=== PATIENT | male | born 1990 | race Caucasian/White ===

== ENCOUNTER 2022-08-08 14:12 | Inpatient (IN) | payer MEDICAID, OTHER ==
[2022-08-08] MEDS ORDERED: SODIUM CHLORIDE 0.9% 1,000 ML IV ONE ×2 (14:33→18:12)
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
[2022-08-08] MEDS ORDERED: LORazepam 2 MG/ML INJ IV STA ×2 (15:11→18:07)
[2022-08-08 15:20] LABS: Basophils # (A) 0.1 k/uL (0-0.2); Basophils % (A) 1 %; Eosinophils # (A) 0.2 k/uL (0-0.7); Eosinophils % (A) 2 %; HCT 47.4 % (39.0-53.0); HGB 16.4 gm/dL (13.0-17.5); Lymphocytes % (A) 23 %; MCH 32.5 pg (25.0-35.0); MCHC 34.5 g/dL (31.0-37.0); MCV 94.3 fL (80.0-100.0); Mean Platelet Volume 7.2; Monocytes # (A) 0.8 k/uL (0-1.0); Monocytes % (A) 7 %; Neutrophils # (A) 8.4 k/uL (1.3-7.7); Neutrophils % (A) 65 %; Platelet Count 350 k/uL (150-450); RBC 5.03 m/uL (4.30-5.90); RDW 12.4 % (11.5-15.5); WBC 12.9 k/uL (3.8-10.6)
[2022-08-08 15:30] LABS: ALT 104 U/L (4-49); AST 75 U/L (17-59); African American GFR (CKD) >90 (>60 ml/min/1.73 sqM); Albumin 5.1 g/dL (3.5-5.0); Alcohol 59 mg/dL; Alkaline Phosphatase 89 U/L (38-126); Anion Gap 14 mmol/L; Blood Urea Nitrogen 11 mg/dL (9-20); Calcium 9.2 mg/dL (8.4-10.2); Carbon Dioxide 21 mmol/L (22-30); Chloride 101 mmol/L (98-107); Glucose 107 mg/dL (74-99); Non-African American GFR(CKD) >90 (>60 ml/min/1.73 sqM); Potassium 4.2 mmol/L (3.5-5.1); Sodium 136 mmol/L (137-145); Total Bilirubin 0.5 mg/dL (0.2-1.3); Total Protein 9.1 g/dL (6.3-8.2)
[2022-08-08 15:38] LABS: Amphetamine Screen,Urine Detected (NotDetected); Barbiturate Screen,Urine Not Detected (NotDetected); Benzodiazepines Screen,Urine Detected (NotDetected); Cocaine Screen,Urine Detected (NotDetected); Methadone Screen, Urine Not Detected (NotDetected); Opiate Screen,Urine Not Detected (NotDetected); Oxycodone Screen, Urine Detected (NotDetected); Phencyclidine Screen,Urine Not Detected (NotDetected); Tricyclic Antidepressant,Urine Not Detected (NotDetected); Urn Cannabinoid Scrn Detected (NotDetected)
--- NOTE | 2022-08-08 21:22 | XR ---
EXAMINATION TYPE: XR chest 2V DATE OF EXAM: 08/08/2022 COMPARISON: NONE HISTORY: Chest pain TECHNIQUE: 2 views FINDINGS: Heart and mediastinum are normal. Lungs are clear. Diaphragm is normal. Bony thorax appears normal. IMPRESSION: Normal chest.
[2022-08-08] MEDS ORDERED: MAG HYDROX/AL HYDROX/SIMETH 30 ML CUP PO PRN (22:44)
[2022-08-08] MEDS ORDERED: HALOPERIDOL LACTATE 5 MG/ML 1 ML VIAL IM PRN (22:44)
[2022-08-08] MEDS ORDERED: ACETAMINOPHEN TAB 325 MG TAB PO PRN (22:44)
[2022-08-08] MEDS ORDERED: MAGNESIUM HYDROXIDE 2,400 MG/10 ML CUP PO PRN (22:44)
[2022-08-08] MEDS ORDERED: LORazepam 1 MG TAB PO PRN (22:44)
[2022-08-08] MEDS ORDERED: LORazepam 2 MG/ML INJ IM PRN (22:49)
[2022-08-08] MEDS ORDERED: haloperidoL 5 MG TAB PO PRN (22:49)
[2022-08-08] MEDS: LORazepam 1 MG TAB PO PRN (23:15)
--- NOTE | 2022-08-09 02:15 | P.PN ---
Progress Note - Text Progress Note Date: 08/08/22 patient could not be evaluated , heavily medicated and sleeping at this time
[2022-08-09 05:15] VITALS: RESP 16
[2022-08-09 07:14] LABS: Basophils # (A) 0.1 k/uL (0-0.2); Basophils % (A) 1 %; Eosinophils # (A) 0.3 k/uL (0-0.7); Eosinophils % (A) 3 %; HCT 46.5 % (39.0-53.0); HGB 15.9 gm/dL (13.0-17.5); Lymphocytes # (A) 2.5 k/uL (1.0-4.8); Lymphocytes % (A) 25 %; MCH 32.3 pg (25.0-35.0); MCHC 34.1 g/dL (31.0-37.0); MCV 94.7 fL (80.0-100.0); Mean Platelet Volume 7.4; Monocytes # (A) 0.9 k/uL (0-1.0); Monocytes % (A) 9 %; Neutrophils % (A) 60 %; Platelet Count 323 k/uL (150-450); RBC 4.91 m/uL (4.30-5.90); RDW 12.2 % (11.5-15.5); WBC 10.1 k/uL (3.8-10.6)
[2022-08-09] MEDS: LORazepam 1 MG TAB PO PRN ×4 (07:22→23:46)
[2022-08-09] MEDS: NICOTINE 14MG/24HR PATCH TRANSDERM SCH (07:22)
[2022-08-09 07:43] LABS: ALT 83 U/L (4-49); AST 55 U/L (17-59); African American GFR (CKD) >90 (>60 ml/min/1.73 sqM); Albumin 4.5 g/dL (3.5-5.0); Alkaline Phosphatase 82 U/L (38-126); Anion Gap 8 mmol/L; Blood Urea Nitrogen 11 mg/dL (9-20); Calcium 9.3 mg/dL (8.4-10.2); Carbon Dioxide 26 mmol/L (22-30); Chloride 104 mmol/L (98-107); Glucose 99 mg/dL (74-99); Non-African American GFR(CKD) >90 (>60 ml/min/1.73 sqM); Potassium 4.3 mmol/L (3.5-5.1); Sodium 138 mmol/L (137-145); Total Bilirubin 0.7 mg/dL (0.2-1.3); Total Protein 7.9 g/dL (6.3-8.2)
[2022-08-09] MEDS: FOLIC ACID 1 MG TAB PO SCH (09:49)
[2022-08-09] MEDS: MULTIVITAMINS, THERA 1 EACH TAB PO SCH (09:49)
[2022-08-09] MEDS: THIAMINE 100 MG TAB PO SCH (09:49)
[2022-08-09] MEDS: chlordiazePOXIDE 25 MG CAP PO SCH ×3 (09:50→20:17)
[2022-08-09] MEDS ORDERED: SERTRALINE 100 MG TAB PO ONE (11:30)
[2022-08-09] MEDS ORDERED: LORazepam 1 MG TAB PO STA (11:58)
[2022-08-09 14:09] LABS: Chol/HDL Ratio 3.95 Ratio; LDL Cholesterol,Calculated 154.2 mg/dL (0.0-131.0)
[2022-08-09] MEDS ORDERED: cloNIDine 0.2 MG/24HR PATCH TRANSDERM SCH (15:30)
[2022-08-09] MEDS: SERTRALINE 100 MG TAB PO SCH (20:17)
--- NOTE | 2022-08-09 20:52 | HP ---
HISTORY AND PHYSICAL IDENTIFYING DATA: The patient is a 31-year-old male, who lives independently. He presented to the ED for evaluation. CHIEF COMPLAINT: The patient was depressed and stated "I just came here because I don't trust myself." HISTORY OF PRESENTING ILLNESS: The patient has not had a prior psychiatric hospitalization. He notes that he has had some issues with depression on and off over the years. At age 20, he was treated for depression and took Zoloft 300 mg a day. He said the Zoloft was helpful for him. He was only on Zoloft at that point in his life and then has been off antidepressants pretty much since then. He acknowledges some ups and downs in his mood, though for the most part has not recognized persistent problems with depression that would go on for weeks and weeks. He does acknowledge that he does have periods known whenever his mood will get down. He notes that the most immediate issue that he is dealing with is the fact that his mother just . She was on a ventilator. She had end-stage COPD. The rest of her treatment had been discontinued. The patient made the decision himself independently to disconnect the ventilator. He said she continued to breathe for about 18 minutes and then . He notes that toward the end, he was with her. She was not able to verbally communicate, though she could respond yes and no to questions. He said he felt that he was able to express a lot of his thoughts that he wanted to share with her and felt that he has significant grief with her passing, but also sees that he helped her go to a better place. He notes that in regard to depression symptoms, for the most part he has been sleeping reasonably well at night. He has fairly good motivation, energy, and interest. He denies any issues with hallucinations or delusional thinking. He does say he has anxiety issues, especially in crowds, that comes out when he would go into a store or a concert where there were a lot of people around him. It is noted that he was in therapy and has finished a group therapy process. He says about 6 months ago, he completed a PTSD packet and did not identify any significant issues related to that. He says he does continue with some stress issues as there are some conflicts in the family. One issue that came up is that his sister had neglected his mother, though now, his sister is not talking to him, and he has some guilt feelings about that. He notes that he had been living in [place] and was visiting his mother and aunt on a daily basis. He only moved up here 4 months ago, though still was keeping up with his mother. He does acknowledge that there were some struggles when he was a child. One big issue that came up was that both his parents were quite overweight when he was a child and might go to the store with his mother, he would hear other people making comments about her weight. He said that was something that he struggled with as a child and that still impacts him to some extent today. He currently is not on any psychotropic medications and has not been on any psychotropic medications other than Zoloft at age 20. He is admitted for further evaluation. SUBSTANCE USE HISTORY: The patient drinks about 6 to 10 beers on weekend days and drinks about 4 to 6 beers on a daily basis. He had a DUI at age 22 and went for 4 years sober. He said that he was on probation for a year and a half and had to stay away from alcohol. He felt that there were some benefits to that and continued off alcohol until age 26. He acknowledges that at present, alcohol may be an issue for him. He also smokes marijuana on a daily basis. He does not use other abusive substances. PAST MEDICAL HISTORY: The patient reports no current or chronic general health complaints. On the other hand, the patient since admission is showing detox symptoms. His blood pressure has been running high. His last vital signs today as of 1155 hours included BP 143/110, pulse 110 and regular. Temperature at 0514 hours was 97.7. Respirations were 16. Oxygen saturation 99%. The patient has been started on Librium 25 mg t.i.d. and is on a CIWA protocol and has been receiving some p.r.n. Ativan. FAMILY AND SOCIAL HISTORY: The only information I have at present is as above. The patient does work as a union senior painter and is hoping to get back to work soon. MENTAL STATUS EXAMINATION: The patient was somewhat restless. He gave good eye contact. He answered questions appropriately. His thoughts were clear, coherent, and goal-directed. He was spontaneous and interactive. He presented with a somewhat anxious affect, though it is noteworthy that he presented in a friendly and positive manner. His mood was only mildly dysphoric. He seemed to be relax, though after he left the interview, he presented to the nurses being in a moderate level of distress relating to anxiety, most likely secondary to alcohol withdrawal. There was no indication of thought disorder. He was voicing no thoughts of harm. He was oriented and alert. PHYSICAL EXAMINATION: As per medical consultation. ASSESSMENT: This 31-year-old male has significant grief issues that may be intertwined with issues of depression. He has had on and off mood issues. He may be at risk at this point for exacerbation of depression symptoms. In addition, he has alcohol dependence and is in acute alcohol withdrawal. There are some significant grief issues and family stress issues related to his mother's passing. DIAGNOSES: 1. Acute grief reaction. 2. Rule out major depression, recurrent. 3. Alcohol dependence and acute alcohol withdrawal/detox. RECOMMENDATIONS: The patient will be admitted for comprehensive medical, psychiatric, and psychosocial evaluation. We will engage the patient in individual and group therapeutic activities. I will start the patient on Zoloft 100 mg a day. He benefitted in the past from Zoloft. The grief issues he is currently dealing with may intensify or may be part of underlying depression. In addition, he has significant alcohol issues and is currently in detox. He has been started on Librium 25 mg t.i.d. He is on a CIWA protocol with Ativan as a backup, p.r.n. I reviewed medication issues with the patient relating to starting an antidepressant. We discussed the expectations and time course relating to antidepressant therapy. I had an extensive discussion with the patient regarding withdrawal issues as it relates to both alcohol and marijuana. We will focus on stabilization and discharge planning. MMODL / IJN: [id number] /
[2022-08-10 00:02] VITALS: TEMP 97.9
--- NOTE | 2022-08-10 01:05 | P.MDCNMH ---
History of Present Illness H&P Date: 08/09/22 Chief Complaint: medical evaluation 31 year old male with alcohol abuse patient coming in for evaluation , seeking psych help due to severe depression , he denies any suicidal or homicidal ideation, but since his mother , he felt lost and helpless , and he started drinking heavily . he calls himself "functional alcoholic" . he denies any medical concerns at this time denies URI symptoms, changes with urine or bowel habits, denies any fever, or chills blood work showed polysubstance abuse, and elevated cholestrol Review of Systems Pertinent positives as noted in HPI. All other systems were reviewed and are negative Past Medical History Past Medical History: No Reported History History of Any Multi-Drug Resistant Organisms: None Reported Past Surgical History: No Surgical Hx Reported Past Anesthesia/Blood Transfusion Reactions: No Reported Reaction Past Psychological History: Anxiety, Depression Smoking Status: Current every day smoker Past Alcohol Use History: Abuse, Heavy Past Drug Use History: Cocaine, Marijuana, Methamphetamine, Prescription Drug Abuse - Past Family History familiy Additional Family Medical History / Comment(s): denies CAD Medications and Allergies Home Medications Medication Instructions Recorded Confirmed Type No Known Home Medications 08/08/22 08/08/22 History Allergies Allergy/AdvReac Type Severity Reaction Status Date / Time No Known Allergies Allergy Verified 08/08/22 21:24 Physical Exam Vitals: Vital Signs Temp Pulse Resp BP Pulse Ox 08/09/22 23:59 97.9 F 115 H 16 166/102 98 08/09/22 16:59 112 H 16 147/98 08/09/22 15:30 116 H 16 151/110 08/09/22 12:59 117 H 16 156/106 08/09/22 11:55 110 H 143/110 08/09/22 09:54 114 H 141/101 08/09/22 05:14 97.7 F 111 H 16 138/95 99 Constitutional: No acute distress, conversant, pleasant Eyes: Anicteric sclerae, moist conjunctiva, Pupils equal round reactive to light ENMT: NC/AT Oropharynx clear, no erythema, or exudates Neck: Supple, no masses, or JVD No carotid bruits No thyromegaly Lungs: Clear to auscultation Clear to percussion Normal respiratory effort, no accessory muscle use Cardiovascular: Heart regular in rate and rhythm, No murmurs, gallops, or rubs No peripheral edema Abdominal: Soft Nontender, no guarding, rebound or rigidity Abdomen moving with respiration Normoactive bowel sounds No hepatomegaly, No splenomegaly Skin: Normal temperature, tone, texture, turgor Extremities: No digital cyanosis No clubbing Pedal pulses intact and symmetrical Radial pulses intact and symmetrical No calf tenderness Psychiatric: Alert and oriented to person, place and time Neuro Muscles Strength 5/5 in all 4 extremities Sensation to light touch grossly present throughout Cranial nerves II-XII grossly intact Lymphatics: no palpable cervical or supraclavicular lymph nodes Cranial Nerve Examination - Cranial Nerves Cranial Nerve II- Optic: Intact Cranial Nerve III- Oculomotor: Intact Cranial Nerve IV- Trochlear: Intact Cranial Nerve V- Trigeminal: Intact Cranial Nerve - Abducens: Intact Cranial Nerve VII- Facial: Intact Cranial Nerve VIII- Auditory: Intact Cranial Nerve IX- Glossopharyngeal: Intact Cranial Nerve X- Vagus: Intact Cranial Nerve XI- Accessory: Intact Cranial Nerve XII- Hypoglossal: Intact Results CBC & Chem 7: 08/09/22 06:16 08/09/22 06:16 Labs: Abnormal Lab Results - Last 24 Hours (Table) 08/09/22 Range/Units 06:16 ALT 83 H (4-49) U/L Cholesterol 236.00 H (0.00-200.00) mg/dL LDL Cholesterol, Calc 154.2 H (0.0-131.0) mg/dL Assessment and Plan Assessment: depression maangement per psych polysubstance abuse alcohol dependance / abuse counseled to quit alcohol and drug of abuse hyperlipidemia counseled regarding life style and dietary modification follow up in 3 months , if does not improve consider cholesterol lowering meds labs reviewed thank you for this consultation
[2022-08-10] MEDS: THIAMINE 100 MG TAB PO SCH (09:11)
[2022-08-10] MEDS: NICOTINE 14MG/24HR PATCH TRANSDERM SCH (09:11)
[2022-08-10] MEDS: FOLIC ACID 1 MG TAB PO SCH (09:11)
[2022-08-10] MEDS: chlordiazePOXIDE 25 MG CAP PO SCH (09:11)
[2022-08-10] MEDS: MULTIVITAMINS, THERA 1 EACH TAB PO SCH (09:11)
[2022-08-10 09:19] VITALS: BP 156/79; PULSE 100
--- NOTE | 2022-08-10 13:48 | P.PN ---
Progress Note - Text Progress Note Date: 08/10/22 Interval History: Patient was seen laying in bed today and was directable and agreeable to speak with travel writer. Patient was trembling in his upper extremities and described briefly why keep the hospital. He states that he recently "lost my mom". He claims that he has been feeling more depressed lately and was having thoughts of "wanting to end it" referring to suicide. He states that he still has some of those thoughts on and off. He claims that the medications have been helping mildly at this time. Claims that he still feeling anxious and having with all symptoms from his alcohol consumption. Claims that he was drinking about 6-10 beers a day. He states that he is able to sleep with Remeron in the past and found that it worked well and wanted to be restarted on it. Claims that he is not interested in going to many groups. Was fairly focused on discharge and not going to rehab . At this time patient denies any homical ideations, intent or plan. Patient denies any auditory, visual hallucinations and denies any paranoia or delusions. Patient denies any side effects from the medications and has been compliant with meds. Mental Status Exam: General Appearance: Patient appears to be covered in blankets, stated age is alert, vague and evasive at times. Behavior: Patient is calmly seated without any agitated behavior. Vague. Speech: Patient's speech is fluent and nonpressured. Mood/Affect: Mood is depressed and anxious, improving mildly, affect is congruent and constricted. Suicidality/Homicidality: Patient denies having any homicidal ideation intent or plan. Admits to suicidal thoughts, no intent or plan. Perceptions: Patient denies any visual hallucinations and denies any auditory hallucinations Though content/process: There is no evidence of any delusional thought content and thought process is linear and goal-directed. Keeler. Vague and evasive. discharge. Memory and concentration: AOX3, grossly intact for the purposes of this session Judgment and insight: Poor, Improving mildly Assessment Depressive disorder unspecified, adjustment disorder versus major depressive disorder Alcohol use disorder, severe dependence Cocaine abuse Cannabis use disorder mild Nicotine dependence Plan: -Patient continues to meet criteria for inpatient psychiatric admission for symptom stabilization and safety. Patient has not signed medication consent and was placed in patient's chart. -Medications: Decreased scheduled Librium to 20 mg 3 times a day for alcohol withdrawal symptoms. She will protocol with when necessary Ativan. Continue with Zoloft 100 mg daily for mood/anxiety, Remeron 15 mg daily at bedtime for mood/insomnia. -When necessary Ativan and Haldol for agitation/aggression. -NRT - nicotine patch -SW on board for discharge planning. Encouraged the patient to participate in milieu. Patient is refusing rehab at this time. Likely discharge in 1-2 days back home.
[2022-08-10] MEDS ORDERED: MIRTAZAPINE 15 MG TAB PO SCH (21:00)
[2022-08-10] MEDS: SERTRALINE 100 MG TAB PO SCH (21:04)
[2022-08-11] MEDS: LORazepam 1 MG TAB PO PRN ×2 (03:43→09:14)
[2022-08-11] MEDS: FOLIC ACID 1 MG TAB PO SCH (09:14)
[2022-08-11] MEDS: THIAMINE 100 MG TAB PO SCH (09:14)
[2022-08-11] MEDS: MULTIVITAMINS, THERA 1 EACH TAB PO SCH (09:14)
[2022-08-11] MEDS: NICOTINE 14MG/24HR PATCH TRANSDERM SCH (09:42)
[2022-08-11] MEDS ORDERED: hydrOXYzine pamoate 25 MG CAP PO PRN (10:42)
[2022-08-11] MEDS ORDERED: hydrOXYzine pamoate 25 MG CAP PO ONE (10:43)
[2022-08-11] MEDS ORDERED: NALTREXONE HCL 50 MG TAB PO SCH (10:45)
--- NOTE | 2022-08-11 11:19 | P.DS ---
Providers Date of admission: 08/08/22 22:41 Expected date of discharge: 08/11/22 Attending physician: Hernandez Khan MD Consults: 08/08/22 22:44 Consult Physician Routine Consulting Provider: Willy Aldrich Consult Reason/Comments: medical management Do you want consulting provider notified?: Yes Primary care physician: Stated None - Discharge Diagnosis(es) (1) Depressive disorder Current Visit: Yes Status: Acute Priority: High (2) Alcohol use disorder, severe, dependence Current Visit: Yes Status: Acute Priority: High (3) Cocaine abuse Current Visit: Yes Status: Acute Priority: High (4) Cannabis use disorder, mild, abuse Current Visit: Yes Status: Acute Priority: Medium (5) Nicotine dependence Current Visit: Yes Status: Acute Priority: Low Hospital Course: Admission HPI: Admission note was completed by dr Boyd "the patient is a 31-year-old male, who lives independently. He presented to the ED for evaluation. The patient was depressed and stated "I just came here because I don't trust myself." The patient has not had a prior psychiatric hospitalization. He notes that he has had some issues with depression on and off over the years. At age 20 he was treated for depression and took Zoloft 300 mg a day. He said the Zoloft was helpful for him. He was only on Zoloft at that point in his life and then has been off antidepressants pretty much since then. He acknowledges some ups and downs in his mood, though for the most part has not recognized persistent problems with depression that would go on for weeks and weeks. He does acknowledge that he does have periods known whenever his mood will get down. He notes that the most immediate issue that he is dealing with is the fact that his mother just . He was she was on a ventilator. He had she had end- stage COPD. The rest of the treatment had been discontinued. The patient made the decision himself independently to disconnect the ventilator. He said she continued to breathe for about 80 minutes then . He notes that toward the end he was with her. She was not able to verbally communicate though she could respond yes or no to questions. He said he felt that he was able to express a lot of his thoughts and that he wanted to share with her and felt that she has significant grief with her passing but also sees that he helped her go to a better place. He notes that in regard to depression symptoms, for the most part she has been sleeping reasonably well at night. He has fairly good motivation, energy and interest. He denies any issues with hallucinations or delusional thinking. He does say he has anxiety issues especially in crowds that comes out when he would go into a store or a concert where there were a lot of people around him. It is noted that he was in therapy and has finished the group therapy process. He says about 6 months ago he completed a PTSD packet and did not identify any significant issues related to that. He says he does continue with some stress issues as there are some conflicts in the family. One issue that came up is that his sister had neglected his mother though now his sister is not talking to him and he has some guilty feelings about that. Kosta had been living in [place] and was living visiting his mother and aunt on a daily basis. He only moved up to 4 months ago though still was keeping up with his mother. He does acknowledge that there were some struggle areas when he was a child. One big issue that came up was that both his parents were quite overweight when he was a child and might go to the store with his mother he would hear other people making comments about her weight. She said that was nuzhat ething that he struggled with as a child and that still impacts him to some extent today. He currently is not on any psychotropic medications and has not been on any psychotropic medications other than Zoloft at the age of 20. He is admitted for further evaluation." Hospital course: Upon admission to the unit patient was directable and agreeable to commence treatment and signed adult voluntary form . Patient got along well with other patients on the unit and followed unit protocol. Patient was compliant with the medications and denied any side effects throughout hospital course. Patient was started on Zoloft 100 mg daily for mood/anxiety, naltrexone 50 mg by mouth daily for alcohol cravings, Librium was scheduled and taper down for alcohol withdrawal. Remeron 15 mg daily at bedtime for mood/insomnia/appetite and Vistaril when necessary for anxiety. Patient spoke of his stressors and engaged in therapy both group and individual. Patient was also seen by medical team for history and physical exam. Throughout the course of the hospitalization patient gradually improved with regards to mood, anxiety, sleep and returned back to their baseline level of functioning. On the day of discharge patient denied any suicidal or homicidal ideations intent or plan denied any auditory or visual hallucinations. Patient endorsed wanting to live for his job/career and also his health. The patient denied any access to guns or weapons. Patient denied any paranoia and did not endorse any delusions. Patient does have a significant history of substance abuse and was counseled on abstaining from all substances including alcohol and marijuana. Patient was offered however declined inpatient substance-abuse rehab. Patient was interested in naltrexone to help with his alcohol cravings. Patient was also counseled on the medications and need for regular compliance and was encouraged to follow-up with their outpatient appointment for mental health and also for primary care. Prior to discharge a family meeting will be arranged by drug abuse social worker to answer any questions and ensure safety upon discharge. Mental status exam: General Appearance: Patient appears to be balding, stated age is alert, pleasant, and cooperative. Patient is in no acute distress and has improved hygiene and grooming Behavior: Patient is calmly seated without any agitated behavior. Speech: Patient's speech is fluent and nonpressured. Mood/Affect: Patient reports their mood is "better", affect is congruent and euthymic. Suicidality/Homicidality: Patient denies having any suicidal or homicidal ideation intent or plan. Perceptions: Patient denies any auditory or visual hallucinations. Though content/process: There is no evidence of any delusional thought content and thought process is linear and goal-directed. more future oriented Memory and concentration: AOX3, grossly intact for the purposes of this session. Can spell "WORLD" backwards correctly. Judgment and insight: chronically poor, however has improved with guarded prognosis Impression: Depressive disorder unspecified Alcohol use disorder severe dependence Cannabis use disorder mild Cocaine abuse Nicotine dependence Plan: -Continue with discharge today as patient has improved and stabilized psychiatrically and is not currently an imminent threat to himself and/or others. Patient will remain at chronically elevated risk for harm to self and/or others due to his impulsivity and polysubstance abuse. -Continue medications: Librium has been decreased to 10 mg 3 times a day, will be given 4 tablets for the next 2 days then can be discontinued. Naltrexone 50 mg by mouth daily for alcohol cravings, Zoloft 100 mg daily for mood/anxiety, Remeron 15 mg daily at bedtime for mood/insomnia/appetite, Vistaril twice a day when necessary for anxiety. -Patient was counseled on the need for medication compliance and appropriate follow-up at mental health and also primary care for medical issues. Patient verbalized understanding and agreed. -Social work to arrange for and conduct family meeting to ensure safety upon discharge and answer any questions/concerns. Social work also to arrange for patients follow up appointments with [facility] for psychiatric care along with follow up with primary care provider. -Patient counseled on abstaining from recreational drugs and marijuana and alcohol. Was informed/educated on the adverse effects on their physical and mental health. Patient verbally agreed and understood. Patient was offered substance abuse treatment however declined at this time. -Patient was instructed to return to the hospital or seek immediate medical care if their psychiatric or medical symptoms do worsen or reoccur. Laboratory Results WBC 10.1 k/uL (3.8-10.6) 08/09/22 06:16 RBC 4.91 m/uL (4.30-5.90) 08/09/22 06:16 Hgb 15.9 gm/dL (13.0-17.5) 08/09/22 06:16 Hct 46.5 % (39.0-53.0) 08/09/22 06:16 MCV 94.7 fL (80.0-100.0) 08/09/22 06:16 MCH 32.3 pg (25.0-35.0) 08/09/22 06:16 MCHC 34.1 g/dL (31.0-37.0) 08/09/22 06:16 RDW 12.2 % (11.5-15.5) 08/09/22 06:16 Plt Count 323 k/uL (150-450) 08/09/22 06:16 MPV 7.4 08/09/22 06:16 Neutrophils % 60 % 08/09/22 06:16 Lymphocytes % 25 % 08/09/22 06:16 Monocytes % 9 % 08/09/22 06:16 Eosinophils % 3 % 08/09/22 06:16 Basophils % 1 % 08/09/22 06:16 Neutrophils # 6.0 k/uL (1.3-7.7) 08/09/22 06:16 Lymphocytes # 2.5 k/uL (1.0-4.8) 08/09/22 06:16 Monocytes # 0.9 k/uL (0-1.0) 08/09/22 06:16 Eosinophils # 0.3 k/uL (0-0.7) 08/09/22 06:16 Basophils # 0.1 k/uL (0-0.2) 08/09/22 06:16 Sodium 138 mmol/L (137-145) 08/09/22 06:16 Potassium 4.3 mmol/L (3.5-5.1) 08/09/22 06:16 Chloride 104 mmol/L (98-107) 08/09/22 06:16 Carbon Dioxide 26 mmol/L (22-30) 08/09/22 06:16 Anion Gap 8 mmol/L 08/09/22 06:16 BUN 11 mg/dL (9-20) 08/09/22 06:16 Creatinine 0.84 mg/dL (0.66-1.25) 08/09/22 06:16 Est GFR (CKD-EPI)AfAm >90 (>60 ml/min/1.73 sqM) 08/09/22 06:16 Est GFR (CKD-EPI)NonAf >90 (>60 ml/min/1.73 sqM) 08/09/22 06:16 Glucose 99 mg/dL (74-99) 08/09/22 06:[address] Glu mg/dL 114 08/09/22 06:16 Hemoglobin A1c 5.6 % (0.0-6.0) 08/09/22 06:16 Calcium 9.3 mg/dL (8.4-10.2) 08/09/22 06:16 Total Bilirubin 0.7 mg/dL (0.2-1.3) 08/09/22 06:16 AST 55 U/L (17-59) 08/09/22 06:16 ALT 83 U/L (4-49) H 08/09/22 06:16 Alkaline Phosphatase 82 U/L (38-126) 08/09/22 06:16 Troponin I <0.012 ng/mL (0.000-0.034) 08/08/22 15:03 Total Protein 7.9 g/dL (6.3-8.2) 08/09/22 06:16 Albumin 4.5 g/dL (3.5-5.0) 08/09/22 06:16 Triglycerides 110.00 mg/dL (0.00-149.00) 08/09/22 06:16 Cholesterol 236.00 mg/dL (0.00-200.00) H 08/09/22 06:16 LDL Cholesterol, Calc 154.2 mg/dL (0.0-131.0) H 08/09/22 06:16 VLDL Cholesterol, Calc 22.00 mg/dL (5.00-40.00) 08/09/22 06:16 HDL Cholesterol 59.80 mg/dL (40.00-60.00) 08/09/22 06:16 Cholesterol/HDL Ratio 3.95 Ratio 08/09/22 06:16 TSH 3.880 mIU/L (0.465-4.680) 08/09/22 06:16 Urine Opiates Screen Not Detected (NotDetected) 08/08/22 15:03 Ur Oxycodone Screen Detected (NotDetected) H 08/08/22 15:03 Urine Methadone Screen Not Detected (NotDetected) 08/08/22 15:03 Ur Propoxyphene Screen Not Detected (NotDetected) 08/08/22 15:03 Ur Barbiturates Screen Not Detected (NotDetected) 08/08/22 15:03 U Tricyclic Antidepress Not Detected (NotDetected) 08/08/22 15:03 Ur Phencyclidine Scrn Not Detected (NotDetected) 08/08/22 15:03 Ur Amphetamines Screen Detected (NotDetected) H 08/08/22 15:03 U Methamphetamines Scrn Detected (NotDetected) H 08/08/22 15:03 U Benzodiazepines Scrn Detected (NotDetected) H 08/08/22 15:03 Urine Cocaine Screen Detected (NotDetected) H 08/08/22 15:03 U Marijuana (THC) Screen Detected (NotDetected) H 08/08/22 15:03 Serum Alcohol 59 mg/dL 08/08/22 15:03 Coronavirus (PCR) Not Detected (Not Detectd) 08/08/22 21:45 Vital Signs Temp 97.9 F 08/09/22 23:59 Pulse 100 08/10/22 09:18 Resp 16 08/09/22 23:59 BP 156/79 08/10/22 09:18 Pulse Ox 98 08/09/22 23:59 FiO2 Allergies Allergy/AdvReac Type Severity Reaction Status Date / Time No Known Allergies Allergy Verified 08/08/22 21:24 Patient Condition at Discharge: Stable Plan - Discharge Summary New Discharge Prescriptions: New Nicotine 14Mg/24Hr Patch [Habitrol] 1 patch TRANSDERM DAILY 14 Days patch chlordiazePOXIDE HCl [Librium] 10 mg PO TID #4 cap Mirtazapine [Remeron] 15 mg PO HS 30 Days tab hydrOXYzine pamoate [Vistaril] 25 mg PO BID PRN 30 Days cap PRN Reason: Anxiety Thiamine [Vitamin B-1] 100 mg PO DAILY 30 Days tab Sertraline [Zoloft] 100 mg PO HS 30 Days tab Folic Acid 1 mg PO DAILY 30 Days tab Multivitamins, Thera [Multivitamin (formulary)] 1 each PO DAILY 30 Days tab Naltrexone HCl [Revia] 50 mg PO DAILY 30 Days tab Discharge Medication List Folic Acid 1 mg PO DAILY 30 Days tab 08/11/22 [Rx] Mirtazapine [Remeron] 15 mg PO HS 30 Days tab 08/11/22 [Rx] Multivitamins, Thera [Multivitamin (formulary)] 1 each PO DAILY 30 Days tab 08/11/22 [Rx] Naltrexone HCl [Revia] 50 mg PO DAILY 30 Days tab 08/11/22 [Rx] Nicotine 14Mg/24Hr Patch [Habitrol] 1 patch TRANSDERM DAILY 14 Days patch 08/11/22 [Rx] Sertraline [Zoloft] 100 mg PO HS 30 Days tab 08/11/22 [Rx] Thiamine [Vitamin B-1] 100 mg PO DAILY 30 Days tab 08/11/22 [Rx] chlordiazePOXIDE HCl [Librium] 10 mg PO TID #4 cap 08/11/22 [Rx] hydrOXYzine pamoate [Vistaril] 25 mg PO BID PRN 30 Days cap 08/11/22 [Rx] Follow up Appointment(s)/Referral(s): None,Stated [Primary Care Provider] - 1-2 days Activity/Diet/Wound Care/Special Instructions: Avoid the use of street drugs and alcohol. Take all prescriptions as prescribed. When you are in need of refills on your medications, please contact your medical provider and/or outpatient psychiatrist to have this done. Please go to scheduled outpatient appointment for aftercare treatment. If symptoms return or become worse, call the crisis line at and/or go to the nearest emergency room for evaluation Discharge Disposition: HOME SELF-CARE
== END 2022-08-11 12:32 | disposition home or self-care (01) | DRG 881 ==
LOC: EC 14:12 → 3MHU 22:41
PROVIDERS: ADMIT Psychiatry & Neurology Psychiatry; ATTEND Psychiatry & Neurology Psychiatry
PROC: HZ2ZZZZ Detoxification Services for Substance Abuse Treatment (ICD-10-PCS; principal; 2022-08-08)
DX: F32.A Depression, unspecified (principal); F10.239 Alcohol dependence with withdrawal, unspecified; R45.851 Suicidal ideations; F43.10 Post-traumatic stress disorder, unspecified; F43.20 Adjustment disorder, unspecified; Y90.3 Blood alcohol level of 60-79 mg/100 ml; G47.00 Insomnia, unspecified; J44.9 Chronic obstructive pulmonary disease, unspecified; F12.10 Cannabis abuse, uncomplicated; F14.10 Cocaine abuse, uncomplicated; F15.10 Other stimulant abuse, uncomplicated; E78.5 Hyperlipidemia, unspecified; Z20.822 Contact with and (suspected) exposure to COVID-19; F17.210 Nicotine dependence, cigarettes, uncomplicated; Z79.899 Other long term (current) drug therapy; Z71.41 Alcohol abuse counseling and surveillance of alcoholic; Z71.6 Tobacco abuse counseling; Z71.51 Drug abuse counseling and surveillance of drug abuser
CPT/HCPCS: 36415; 71046; 80053; 80061; 80306; 80320; 82075; 83036; 84443; 84484; 85025; 87635; 93005; 96361; 96372; 96374; 96376; 99285